=== PATIENT | male | born 1950 | race Caucasian/White ===

== ENCOUNTER 2022-07-27 05:45 | Outpatient (CLI) | payer OTHER ==
[~2022-07-27] VITALS: Ht 182.9 cm; Wt 113.4 kg
[2022-07-27] MEDS ORDERED: CEFAZOLIN 2 GM IVPB PREMIX 50 ML IV ONE (07:00)
== END 2022-07-27 09:00 | disposition home or self-care (01) ==
LOC: SLB 05:45 → SMU 05:45 → SDS 05:45 → EDSTATUS 08:00 → SLB 09:00
PROVIDERS: ATTEND Otolaryngology
DX: Z01.812 Encounter for preprocedural laboratory examination (principal); Z20.822 Contact with and (suspected) exposure to COVID-19; D37.030 Neoplasm of uncertain behavior of the parotid salivary glands
CPT/HCPCS: 36415; J0690